=== PATIENT | female | born 2000 | race Two or more races ===

== ENCOUNTER 2019-11-18 14:23 | Emergency (ER) | payer MEDICAID ==
[~2019-11-18] VITALS: Ht 160 cm; Wt 60.0 kg
[2019-11-18 14:35] VITALS: BP 124/74
[2019-11-18 15:09] LABS: CHLORIDE 110 mEq/L (98-107)
[2019-11-18 15:17] LABS: BASOPHILS % 0.4 % (0.0-2.0); EOSINOPHILS % 1.1 % (0.0-5.0); HEMATOCRIT. 33.7 % (36.0-48.0); HEMOGLOBIN. 11.7 g/dL (12.0-16.0); LYMPHOCYTES % 18.5 % (20.0-50.0); MEAN CORPUSCULAR HEMOGLOBIN 29.2 pg (28.0-32.0); MEAN CORPUSCULAR VOLUME 84.3 fL (81.0-99.0); MEAN PLATELET VOLUME 7.3 fl (7.4-10.4); MONOCYTES % 5.7 % (2.0-8.0); NEUTROPHILS % 74.3 % (40.0-76.0); PLATELET 258 x1000/uL (130-400); RED CELL DISTRIBUTION WIDTH 13.7 % (11.6-14.6)
[2019-11-18 15:21] LABS: B-HCG QUANTITATIVE 189 mIU/mL (<3)
[2019-11-18] MEDS ORDERED: MORPHINE SULFATE 4 MG/ML CPJ (NOT FOR IM USE) IV ONE (15:30)
[2019-11-18] MEDS ORDERED: ACETAMINOPHEN 500MG TABLET PO NR (16:15)
== END 2019-11-18 19:17 | disposition home or self-care (01) ==
LOC: ER 14:23
DX: N93.9 Abnormal uterine and vaginal bleeding, unspecified (principal); Z98.890 Other specified postprocedural states
CPT/HCPCS: 36415; 76830; 76856; 80053; 84702; 85025; 86850; 86900; 99284